=== PATIENT | female | born 1980 | race Caucasian/White ===

== ENCOUNTER → 2021-01-15 | Outpatient (CLI) | payer OTHER | END | disposition home or self-care (01) | LOC: LAB SHORT 15:41 → LAB 15:41 | DX: B07.0 Plantar wart (principal) | CPT/HCPCS: 88305 ==

== ENCOUNTER 2021-06-07 08:03 | Emergency (ER) | payer OTHER ==
[~2021-06-07] VITALS: Ht 157.5 cm; Wt 104.3 kg
[2021-06-07] MEDS ORDERED: AMOCLA875 PO (09:11)
[2021-06-07] MEDS ORDERED: Norco 5-325 Ta1 EACH PO (09:11)
== END 2021-06-07 09:57 | disposition home or self-care (01) ==
LOC: ER 08:03
DX: S41.152A Open bite of left upper arm, initial encounter (principal); Z88.2 Allergy status to sulfonamides; Z88.8 Allergy status to other drugs, medicaments and biological substances; W54.0XXA Bitten by dog, initial encounter
CPT/HCPCS: 12001; 99283-25; A9270

== ENCOUNTER → 2021-12-23 | Outpatient (CLI) | payer OTHER ==
[~2021-12-23] MED LIST: AMOCLA875 PO; Norco 5-325 Ta1 EACH PO
[2021-12-25 17:10] LABS: HPV 16 Positive (Negative); HPV 18 Negative (Negative); HPV OTHER HR TYPES Negative (Negative)
== END | disposition home or self-care (01) ==
LOC: LAB SHORT 12:00 → LAB 12:00
PROVIDERS: Nurse Practitioner Women's Health
DX: Z12.4 Encounter for screening for malignant neoplasm of cervix (principal); Z11.3 Encounter for screening for infections with a predominantly sexual mode of transmission; Z11.51 Encounter for screening for human papillomavirus (HPV)
CPT/HCPCS: 87624; G0145

== ENCOUNTER 2022-06-17 11:38 | Day surgery (SDC) | payer OTHER ==
[2022-06-15 18:32] LABS: BASOPHILS ABSOLUTE AUTO 0.07 K/mm3 (0.00-0.23); BASOPHILS PERCENT AUTO 1 % (0-2); EOSINOPHILS PERCENT AUTO 1 % (0-6); Hematocrit 39.6 % (33.0-51.0); Hemoglobin 13.2 g/dL (11.5-16.0); IMMATURE GRAN ABSOLUTE AUTO 0.06 K/mm3 (0.00-0.10); IMMATURE GRAN PERCENT AUTO 1 % (0-1); LYMPHOCYTES ABSOLUTE AUTO 3.04 K/mm3 (0.84-5.20); LYMPHOCYTES PERCENT AUTO 24 % (21-46); MONOCYTES ABSOLUTE AUTO 1.03 K/mm3 (0.16-1.47); MONOCYTES PERCENT AUTO 8 % (4-13); Mean Corpuscular HGB Conc 33.3 g/dL (31.5-36.5); Mean Corpuscular Volume 93 fL (80-100); Mean Platelet Volume 10.1 fL (9.1-12.4); NEUTROPHILS ABSOLUTE AUTO 8.33 K/mm3 (1.96-9.15); NEUTROPHILS PERCENT AUTO 66 % (41-73); Platelet Count 330 K/mm3 (150-400); RDW Coefficient Variation 12.6 % (11.7-14.2); RDW Standard Deviation 43.6 fL (35.1-46.3); Red Blood Cell Count 4.26 M/mm3 (3.80-5.20); White Blood Cell Count 12.63 K/mm3 (4.00-11.30)
[~2022-06-17] VITALS: Ht 157.5 cm; Wt 110.0 kg
[~2022-06-17 11:38] MED LIST changes: +ALPR.25 PO; +BUTALBITAL-ASA1 EACH PO; +DOTTI1 EA18 TOP; +ESCI20 PO; +Estrace Vagin42.5 GM VAG; +MELATONIN5 M1 PO; +MELO7.5 PO; +Metronidazole T45 GM VAG; +PANT40 PO; +PROG100 PO; +Prozac40 MG PO; +SPIR50 PO; +SUCR1; +SUCR1 PO; +TRAZ50 PO
[2022-06-17] MEDS ORDERED: CETI5 PO (12:16)
--- NOTE | 2022-06-17 14:17 | NUR ---
History, Chart, Medications and Allergies reviewed before start of procedure. Patient confirms NPO status and agrees with scheduled surgery. Pre-Op teaching done. Pt verbalizes understanding. PT BELONGINGS PLACED UNDERNEATH GURNEY FOR SAFEKEEPING.
--- NOTE | 2022-06-17 14:27 | NUR ---
PT SISTER TOOK BELONGINGS FOR SAFEKEEPING.
--- NOTE | 2022-06-17 18:38 | NUR ---
PT ARRIVED TO UNIT FROM PACU TRANSFERRED PT FROM [facility] TO BED. PROVIDED K PAD FOR COMFORT. LAP INCISIONS X4 TO ABD WITH DERMABOND CDI. CARIDAD PAD CLEAN. PT REPORTS PAIN IS TOLERABLE AT 3/10. DENIES N/V OR SOB. ORIENTED TO USE OF CALL LIGHT. IV FLUIDS INFUSING PER ORDERS. PROVIDED JELLO, WATER AND CRACKERS. PLACED ABDOMINAL BINDER BEDSIDE FOR PT TO UTILIZE FOR COMFORT. VISITORS AT BEDSIDE.
[2022-06-18 06:01] LABS: BASOPHILS ABSOLUTE AUTO 0.04 K/mm3 (0.00-0.23); BASOPHILS PERCENT AUTO 0 % (0-2); EOSINOPHILS ABSOLUTE AUTO 0.04 K/mm3 (0.00-0.68); EOSINOPHILS PERCENT AUTO 0 % (0-6); Hematocrit 37.5 % (33.0-51.0); Hemoglobin 12.4 g/dL (11.5-16.0); IMMATURE GRAN ABSOLUTE AUTO 0.08 K/mm3 (0.00-0.10); IMMATURE GRAN PERCENT AUTO 1 % (0-1); LYMPHOCYTES ABSOLUTE AUTO 2.66 K/mm3 (0.84-5.20); LYMPHOCYTES PERCENT AUTO 17 % (21-46); MONOCYTES ABSOLUTE AUTO 1.28 K/mm3 (0.16-1.47); MONOCYTES PERCENT AUTO 8 % (4-13); Mean Corpuscular HGB Conc 33.1 g/dL (31.5-36.5); Mean Corpuscular Volume 94 fL (80-100); NEUTROPHILS ABSOLUTE AUTO 11.23 K/mm3 (1.96-9.15); NEUTROPHILS PERCENT AUTO 73 % (41-73); Platelet Count 280 K/mm3 (150-400); RDW Coefficient Variation 12.7 % (11.7-14.2); RDW Standard Deviation 43.8 fL (35.1-46.3); White Blood Cell Count 15.33 K/mm3 (4.00-11.30)
--- NOTE | 2022-06-18 06:46 | NUR ---
SUMMARY PT REPORTS PAIN ADEQUATELY CONTROLLED. AMBULATORY WITH SBA,VOIDING WITHOUT DIFF.SCANT VAG DRNG POSTOP.
[2022-06-18] MEDS ORDERED: IBUP800 PO (09:07)
[2022-06-18] MEDS ORDERED: Percocet 5-3251 EACH PO (09:08)
[2022-06-18] MEDS ORDERED: PROM25 PO (09:08)
[2022-06-18] MEDS ORDERED: SIME80CH PO (09:08)
[2022-06-18] MEDS ORDERED: ESTR2 PO (09:09)
--- NOTE | 2022-06-18 10:10 | NUR ---
DISCHARGE NOTE: PATIENT AND PATIENTS FAMILY WERE EDUCATED ON DISCHARGE INSTRUCTIONS. PATIENT AND PATIENTS FAMILY VERBALIZED UNDERSTANDING OF INSTRUCTIONS AND HAD NO FURTHER QUESTIONS AT THIS TIME. HER ESTROGEN PERSCRIPTION WAS FAXED TO HER PREFERRED PHARMACY. PATIENTS OTHER HARD PERSCRIPTIONS WERE ALREADY FILLED AND ARE WAITING FOR HER AT HOME. HER FOUR LAP SITES ON HER ABD WITH WOUND GLUE ARE C/D/I. DENIES NAUSEA AND VOMITING. SHE IS TOLERATING PO INTAKE AND IS VOIDING. PAIN IS MANAGED WITH ORAL PAIN MEDICATIONS. SHE IS DRESSED AND HAS ITEMS IN THE ROOM GATHERED. SHE IS WAITING FOR HER RIDE THEN WILL BE WHEELCHAIRED DOWN TO THE CAR TO BE TAKEN HOME.
== END 2022-06-18 10:30 | disposition home or self-care (01) ==
LOC: ORSCMMR 11:38 → ORD 13:00 → ORSCMMR 13:00 → ORD 13:30 → ORSCMMR 13:30 → SURS 17:50 → ORSCMMR 06-18 10:30
PROVIDERS: Obstetrics & Gynecology
PROC: 0UT74ZZ Resection of Bilateral Fallopian Tubes, Percutaneous Endoscopic Approach (ICD-10-PCS; principal; 2022-06-17 13:00)
PROC: 0UT24ZZ Resection of Bilateral Ovaries, Percutaneous Endoscopic Approach (ICD-10-PCS; principal; 2022-06-17 13:00)
PROC: 0UBF4ZX Excision of Cul-de-sac, Percutaneous Endoscopic Approach, Diagnostic (ICD-10-PCS; principal; 2022-06-17 13:00)
PROC: 0UT94ZZ Resection of Uterus, Percutaneous Endoscopic Approach (ICD-10-PCS; principal; 2022-06-17 13:00)
DX: N92.0 Excessive and frequent menstruation with regular cycle (principal); R10.2 Pelvic and perineal pain; R87.810 Cervical high risk human papillomavirus (HPV) DNA test positive; D26.9 Other benign neoplasm of uterus, unspecified; D25.2 Subserosal leiomyoma of uterus; N80.03 Adenomyosis of the uterus; E66.01 Morbid (severe) obesity due to excess calories; Z68.41 Body mass index [BMI] 40.0-44.9, adult; E28.2 Polycystic ovarian syndrome; K21.9 Gastro-esophageal reflux disease without esophagitis; F41.8 Other specified anxiety disorders; Z79.899 Other long term (current) drug therapy
CPT/HCPCS: 58571; 49321; S2900; 36415; 84702; 85025; 86850; 86900; 86901; 88305; 88307; A9270; J0690; J1170; J1885; J2250; J2405; J2704; J2765; J2795; J3010; J7120

== ENCOUNTER → 2023-07-19 | Outpatient (CLI) | payer OTHER ==
[~2023-07-19] MED LIST changes: +CETI5 PO; +ESTR2 PO; +IBUP800 PO; +PROM25 PO; +Percocet 5-3251 EACH PO; +SIME80CH PO
== END ==
LOC: LAB 17:35 → LAB SHORT 17:35
DX: Z11.3 Encounter for screening for infections with a predominantly sexual mode of transmission (principal); N93.9 Abnormal uterine and vaginal bleeding, unspecified; N76.0 Acute vaginitis
CPT/HCPCS: 87798

== ENCOUNTER → 2025-02-21 | Outpatient (CLI) | payer OTHER ==
[2025-02-21 11:16] LABS: BASOPHILS ABSOLUTE AUTO 0.03 K/mm3 (0.00-0.23); BASOPHILS PERCENT AUTO 0 % (0-2); EOSINOPHILS ABSOLUTE AUTO 0.05 K/mm3 (0.00-0.68); EOSINOPHILS PERCENT AUTO 1 % (0-6); Hematocrit 40.8 % (33.0-51.0); Hemoglobin 13.6 g/dL (11.5-16.0); IMMATURE GRAN ABSOLUTE AUTO 0.02 K/mm3 (0.00-0.10); IMMATURE GRAN PERCENT AUTO 0 % (0-1); LYMPHOCYTES ABSOLUTE AUTO 1.92 K/mm3 (0.84-5.20); LYMPHOCYTES PERCENT AUTO 25 % (21-46); MONOCYTES ABSOLUTE AUTO 0.58 K/mm3 (0.16-1.47); MONOCYTES PERCENT AUTO 8 % (4-13); Mean Corpuscular HGB Conc 33.3 g/dL (31.5-36.5); Mean Corpuscular Volume 93 fL (80-100); NEUTROPHILS ABSOLUTE AUTO 4.95 K/mm3 (1.96-9.15); NEUTROPHILS PERCENT AUTO 66 % (41-73); NRBC ABSOLUTE 0.00 K/mm3 (0.00-0.02); NRBC Auto 0.0 /100 WBC (0.0-0.2); Platelet Count 295 K/mm3 (150-400); RDW Coefficient Variation 12.5 % (11.7-14.2); RDW Standard Deviation 42.9 fL (35.1-46.3)
[2025-02-21 12:37] LABS: Thyroid Stimulating Hormone 0.561 uIU/mL (0.360-4.800)
== END ==
LOC: LAB 09:30 → LAB SHORT 09:30
PROVIDERS: Nurse Practitioner
DX: R22.1 Localized swelling, mass and lump, neck (principal)
CPT/HCPCS: 84439; 84443; 84481; 85025